=== PATIENT | female | born 1935 | race Caucasian/White ===

== ENCOUNTER 2022-09-18 13:17 | Inpatient (IN) ==
[2022-09-18] MEDS: fentaNYL 100 mcg/2 ml 50 MCG/ML VIAL IV SLOW PU PRN ×2 (13:54→15:11)
[2022-09-18] MEDS ORDERED: Morphine 4 MG/ML VIAL (1 ml) IV ONE (16:32)
[2022-09-18 16:41] LABS: ABS Lymphocytes 1.8 10^3/ul (1.0-4.8); ABS Monocytes 0.7 10^3/ul (0-0.8); ABS Neutrophils 11.9 10^3/ul (1.5-7.7); Eosinophil % 0.1 %; Hematocrit 27 % (35-47); Hemoglobin 8.9 g/dL (12.0-16.0); Lymphocyte % 12.6 %; Mean Corpuscular HGB Conc 33 g/dL (31-36); Mean Corpuscular Hemoglobin 28 pg (27-31); Mean Corpuscular Volume 86 fL (80-97); Mean Platelet Volume 7.8 fL (7.4-10.4); Platelet Count 223 10^3/uL (150-450); Red Blood Count 3.17 10^6 /uL (3.70-4.87); Red Cell Distribution Width 14 % (10-15); White Blood Count 14.5 10^3/uL (3.5-10.8)
[2022-09-18 16:49] LABS: INR 1.01 (0.89-1.11)
[2022-09-18 17:05] LABS: Albumin 3.8 g/dL (3.2-5.2); Albumin/Globulin Ratio 1.8 (1-3); Globulin 2.1 g/dL (2-4); Potassium 4.3 mmol/L (3.5-5.0); Total Bilirubin 0.3 mg/dL (0.2-1.0); Total Protein 5.9 g/dL (6.4-8.9); eGFR CKD-EPI 70.7 (>60)
[2022-09-18] MEDS ORDERED: HYDROmorphone 0.5 MG/0.5 ML SYRINGE IV SLOW PU PRN (18:03)
[2022-09-18] MEDS ORDERED: Heparin 5000 UNITS/ML 1 mL VIAL SUBCUT ONE (18:10)
[2022-09-18] MEDS ORDERED: Dextrose 50% Syringe 50 ml 25 GM/50 ML SYRINGE IV PUSH PRN (18:14)
[2022-09-18 18:35] LABS: Corrected Retic Count 0.8 % (0.5-1.5); Hematocrit for Retic CNT 27 % (35-47); Immature Retic Fraction 0.42; RBC Retic Count 3.12 10^6/uL (3.70-4.87)
[2022-09-18 19:07] LABS: Ferritin 11.3 ng/mL (11-307)
[2022-09-18] MEDS: HYDROmorphone 1 MG/1 ML SYRINGE IV SLOW PU PRN ×2 (19:13→23:23)
[2022-09-18] MEDS: Acetaminophen IV 1 GM/100ML 1,000 MG/100 ML BAG IV PRN (20:57)
[2022-09-19] MEDS ORDERED: HYDROmorphone 1 MG/1 ML SYRINGE IV ONE (01:17)
[2022-09-19] MEDS: Acetaminophen IV 1 GM/100ML 1,000 MG/100 ML BAG IV PRN ×3 (02:58→15:39)
[2022-09-19] MEDS: HYDROmorphone 1 MG/1 ML SYRINGE IV SLOW PU PRN ×2 (04:59→08:50)
[2022-09-19] MEDS ORDERED: Lactated Ringers 1000 ml BAG 1,000 ML IV SCH ×2 (06:00→12:00)
[2022-09-19 06:11] LABS: Hematocrit 23 % (35-47); Hemoglobin 7.7 g/dL (12.0-16.0); Mean Corpuscular HGB Conc 33 g/dL (31-36); Mean Corpuscular Hemoglobin 29 pg (27-31); Mean Corpuscular Volume 86 fL (80-97); Mean Platelet Volume 8.3 fL (7.4-10.4); Platelet Count 193 10^3/uL (150-450); Red Cell Distribution Width 14 % (10-15); White Blood Count 8.8 10^3/uL (3.5-10.8)
[2022-09-19 06:28] LABS: Calcium 8.5 mg/dL (8.6-10.3); Potassium 4.1 mmol/L (3.5-5.0); eGFR CKD-EPI 46.9 (>60)
[2022-09-19] MEDS: Lactated Ringers 1000 ml BAG 1,000 ML IV SCH ×2 (08:42→23:36)
[2022-09-19] MEDS: Ondansetron 4 mg VIAL 2 MG/ML 2 ml VIAL IV PRN (09:00)
[2022-09-19] MEDS ORDERED: Buffered Lidocaine 1% SYRIN 1 ml INTRADERM ONE (11:49)
[2022-09-19 12:46] LABS: Urine Appearance Clear; Urine Bilirubin Negative (Negative); Urine Blood Negative (Negative); Urine Color Yellow; Urine Glucose Negative (Negative); Urine Ketones Negative (Negative); Urine Nitrite Negative (Negative); Urine Protein Negative (Negative); Urine Specific Gravity 1.023 (1.002-1.030); Urine Urobilinogen Negative (Negative)
[2022-09-19] MEDS ORDERED: Propofol 10 MG/ML 20 ML BTL ONE (12:51)
[2022-09-19] MEDS ORDERED: Lidocaine 2% PF 5 ML VIAL ONE (12:51)
[2022-09-19] MEDS ORDERED: fentaNYL 100 mcg/2 ml 50 MCG/ML VIAL ONE ×2 (12:52→14:45)
[2022-09-19] MEDS ORDERED: ceFAZolin 2 GM in NS PREMIX 2 GM/100 ML BAG IVPB ONE (13:10)
[2022-09-19] MEDS ORDERED: Naloxone 0.4 mg VIAL 0.4 mg/ml 1 ml VIAL IV PRN (13:26)
[2022-09-19] MEDS ORDERED: Ondansetron 4 mg VIAL 2 MG/ML 2 ml VIAL IV PRN (13:26)
[2022-09-19] MEDS ORDERED: Phenylephrine 40 mcg/mL 10mL (400mcg) SYRINGE ONE ×2 (14:15→14:26)
[2022-09-19] MEDS ORDERED: Ondansetron 4 mg VIAL 2 MG/ML 2 ml VIAL ONE (14:26)
[2022-09-19] MEDS ORDERED: Dexamethasone IV 4 MG/ML VIAL 1 ml VIAL ONE (14:26)
[2022-09-19] MEDS: fentaNYL 100 mcg/2 ml 50 MCG/ML VIAL IV PRN ×3 (14:47→15:15)
[2022-09-19] MEDS ORDERED: HYDROmorphone 1 MG/1 ML SYRINGE ONE (15:35)
[2022-09-19] MEDS ORDERED: Acetaminophen IV 1 GM/100ML 1,000 MG/100 ML BAG IV ONE (15:35)
[2022-09-19] MEDS: HYDROmorphone 0.5 MG/0.5 ML SYRINGE IV SLOW PU PRN ×2 (15:44→20:58)
[2022-09-19 17:03] LABS: Hematocrit 25 % (35-47); Hemoglobin 8.2 g/dL (12.0-16.0)
[2022-09-19] MEDS: ceFAZolin 1 GM X 3 DOSES POST-OP Q8H (AddVan) IVPB SCH (20:59)
[2022-09-20] MEDS: Acetaminophen IV 1 GM/100ML 1,000 MG/100 ML BAG IV PRN ×2 (00:38→07:44)
[2022-09-20] MEDS: HYDROmorphone 1 MG/1 ML SYRINGE IV SLOW PU PRN (02:06)
[2022-09-20] MEDS: ceFAZolin 1 GM X 3 DOSES POST-OP Q8H (AddVan) IVPB SCH ×2 (05:13→13:36)
[2022-09-20 05:14] LABS: ABS Lymphocytes 2.7 10^3/ul (1.0-4.8); ABS Monocytes 1.1 10^3/ul (0-0.8); ABS Neutrophils 9.3 10^3/ul (1.5-7.7); Hematocrit 22 % (35-47); Hemoglobin 7.4 g/dL (12.0-16.0); Lymphocyte % 20.4 %; Mean Corpuscular HGB Conc 34 g/dL (31-36); Mean Corpuscular Hemoglobin 29 pg (27-31); Mean Corpuscular Volume 86 fL (80-97); Mean Platelet Volume 8.6 fL (7.4-10.4); Platelet Count 167 10^3/uL (150-450); Red Blood Count 2.51 10^6 /uL (3.70-4.87); Red Cell Distribution Width 14 % (10-15)
[2022-09-20 05:29] LABS: Calcium 8.1 mg/dL (8.6-10.3); Potassium 4.3 mmol/L (3.5-5.0); eGFR CKD-EPI 56.2 (>60)
[2022-09-20] MEDS: HYDROmorphone 0.5 MG/0.5 ML SYRINGE IV SLOW PU PRN (06:15)
[2022-09-20] MEDS: Lactated Ringers 1000 ml BAG 1,000 ML IV SCH (07:49)
[2022-09-20] MEDS: Enoxaparin 30 MG/0.3 ML SYR SUBCUT SCH (09:55)
[2022-09-20] MEDS: Morphine 2 MG/ML SYRINGE IV PRN (11:33)
[2022-09-20] MEDS ORDERED: HYDROcodone/ACETAMIN 5/325 mg TAB PO PRN (13:29)
[2022-09-20] MEDS: HYDROcodone/ACETAMIN 5/325 mg TAB PO PRN ×2 (13:36→17:55)
[2022-09-21] MEDS: HYDROcodone/ACETAMIN 5/325 mg TAB PO PRN ×5 (03:57→20:58)
[2022-09-21 06:32] LABS: ABS Eosinophils 0.1 10^3/ul (0-0.6); ABS Neutrophils 6.7 10^3/ul (1.5-7.7); Eosinophil % 0.5 %; Hematocrit 18 % (35-47); Lymphocyte % 20.3 %; Mean Corpuscular HGB Conc 33 g/dL (31-36); Mean Corpuscular Hemoglobin 29 pg (27-31); Mean Corpuscular Volume 87 fL (80-97); Mean Platelet Volume 8.5 fL (7.4-10.4); Platelet Count 152 10^3/uL (150-450); Red Blood Count 2.05 10^6 /uL (3.70-4.87); Red Cell Distribution Width 15 % (10-15); White Blood Count 9.7 10^3/uL (3.5-10.8)
[2022-09-21 06:44] LABS: Calcium 7.8 mg/dL (8.6-10.3); Potassium 4.2 mmol/L (3.5-5.0); eGFR CKD-EPI 63.1 (>60)
[2022-09-21] MEDS: Enoxaparin 30 MG/0.3 ML SYR SUBCUT SCH (08:46)
[2022-09-21 17:01] LABS: Hematocrit 24 % (35-47); Hemoglobin 7.9 g/dL (12.0-16.0)
[2022-09-21] MEDS: Insulin GLARGINE 100 un/ml 10 ml VIAL SUBCUT SCH (21:07)
[2022-09-22] MEDS: HYDROcodone/ACETAMIN 5/325 mg TAB PO PRN ×5 (01:17→22:32)
[2022-09-22 06:18] LABS: ABS Eosinophils 0.1 10^3/ul (0-0.6); ABS Lymphocytes 2.7 10^3/ul (1.0-4.8); ABS Neutrophils 6.6 10^3/ul (1.5-7.7); Eosinophil % 0.6 %; Hematocrit 22 % (35-47); Hemoglobin 7.5 g/dL (12.0-16.0); Lymphocyte % 25.9 %; Mean Corpuscular HGB Conc 34 g/dL (31-36); Mean Corpuscular Hemoglobin 30 pg (27-31); Mean Corpuscular Volume 87 fL (80-97); Mean Platelet Volume 8.3 fL (7.4-10.4); Platelet Count 179 10^3/uL (150-450); Red Blood Count 2.53 10^6 /uL (3.70-4.87); Red Cell Distribution Width 15 % (10-15); White Blood Count 10.4 10^3/uL (3.5-10.8)
[2022-09-22 06:38] LABS: Calcium 7.9 mg/dL (8.6-10.3); eGFR CKD-EPI 67.6 (>60)
[2022-09-22] MEDS: Insulin GLARGINE 100 un/ml 10 ml VIAL SUBCUT SCH ×2 (09:16→22:34)
[2022-09-22] MEDS: Enoxaparin 30 MG/0.3 ML SYR SUBCUT SCH (09:18)
[2022-09-22] MEDS: Magnesium Hydroxide LIQ 30 ML UDC PO PRN (10:38)
[2022-09-22] MEDS: Senna TAB 8.6 mg TAB PO PRN (10:38)
[2022-09-23] MEDS: HYDROcodone/ACETAMIN 5/325 mg TAB PO PRN ×5 (03:24→23:13)
[2022-09-23] MEDS: Insulin GLARGINE 100 un/ml 10 ml VIAL SUBCUT SCH ×2 (08:42→22:04)
[2022-09-23] MEDS: Enoxaparin 30 MG/0.3 ML SYR SUBCUT SCH (08:43)
[2022-09-23 09:05] LABS: ABS Eosinophils 0.1 10^3/ul (0-0.6); ABS Lymphocytes 2.3 10^3/ul (1.0-4.8); ABS Monocytes 0.8 10^3/ul (0-0.8); ABS Neutrophils 5.4 10^3/ul (1.5-7.7); Eosinophil % 1.3 %; Hematocrit 21 % (35-47); Hemoglobin 6.9 g/dL (12.0-16.0); Lymphocyte % 27.2 %; Mean Corpuscular HGB Conc 33 g/dL (31-36); Mean Corpuscular Hemoglobin 29 pg (27-31); Mean Corpuscular Volume 87 fL (80-97); Mean Platelet Volume 7.8 fL (7.4-10.4); Platelet Count 210 10^3/uL (150-450); Red Blood Count 2.37 10^6 /uL (3.70-4.87); Red Cell Distribution Width 15 % (10-15); White Blood Count 8.6 10^3/uL (3.5-10.8)
[2022-09-23 10:05] LABS: Calcium 7.8 mg/dL (8.6-10.3); Potassium 3.9 mmol/L (3.5-5.0); eGFR CKD-EPI 67.6 (>60)
[2022-09-24] MEDS: HYDROcodone/ACETAMIN 5/325 mg TAB PO PRN ×3 (04:46→20:43)
[2022-09-24 06:44] LABS: ABS Eosinophils 0.1 10^3/ul (0-0.6); ABS Lymphocytes 2.8 10^3/ul (1.0-4.8); ABS Monocytes 0.8 10^3/ul (0-0.8); Eosinophil % 1.1 %; Hematocrit 25 % (35-47); Hemoglobin 8.5 g/dL (12.0-16.0); Lymphocyte % 31.9 %; Mean Corpuscular HGB Conc 34 g/dL (31-36); Mean Corpuscular Hemoglobin 29 pg (27-31); Mean Corpuscular Volume 86 fL (80-97); Mean Platelet Volume 7.9 fL (7.4-10.4); Nucleated Red Blood Cells % 0.1; Platelet Count 236 10^3/uL (150-450); Red Blood Count 2.93 10^6 /uL (3.70-4.87); Red Cell Distribution Width 15 % (10-15); White Blood Count 8.7 10^3/uL (3.5-10.8)
[2022-09-24 06:58] LABS: Calcium 7.8 mg/dL (8.6-10.3); Magnesium 1.9 mg/dL (1.9-2.7); Potassium 4.1 mmol/L (3.5-5.0); eGFR CKD-EPI 65.8 (>60)
[2022-09-24] MEDS: Magnesium Hydroxide LIQ 30 ML UDC PO PRN (09:27)
[2022-09-24] MEDS: Insulin GLARGINE 100 un/ml 10 ml VIAL SUBCUT SCH ×2 (09:28→20:44)
[2022-09-24] MEDS: Enoxaparin 30 MG/0.3 ML SYR SUBCUT SCH (09:29)
[2022-09-24] MEDS: Morphine 2 MG/ML SYRINGE IV PRN (22:58)
[2022-09-25] MEDS: HYDROcodone/ACETAMIN 5/325 mg TAB PO PRN ×4 (05:46→20:27)
[2022-09-25 05:50] LABS: Hematocrit 25 % (35-47); Hemoglobin 8.5 g/dL (12.0-16.0); Mean Corpuscular HGB Conc 34 g/dL (31-36); Mean Corpuscular Hemoglobin 29 pg (27-31); Mean Corpuscular Volume 86 fL (80-97); Mean Platelet Volume 7.7 fL (7.4-10.4); Platelet Count 275 10^3/uL (150-450); Red Cell Distribution Width 15 % (10-15); White Blood Count 9.5 10^3/uL (3.5-10.8)
[2022-09-25 06:10] LABS: Calcium 8.2 mg/dL (8.6-10.3); Potassium 4.5 mmol/L (3.5-5.0); eGFR CKD-EPI 72.8 (>60)
[2022-09-25] MEDS: Enoxaparin 30 MG/0.3 ML SYR SUBCUT SCH (10:05)
[2022-09-25] MEDS: Insulin GLARGINE 100 un/ml 10 ml VIAL SUBCUT SCH ×2 (10:05→20:28)
[2022-09-25] MEDS: Senna TAB 8.6 mg TAB PO PRN (20:27)
[2022-09-26] MEDS: HYDROcodone/ACETAMIN 5/325 mg TAB PO PRN ×6 (00:25→22:53)
[2022-09-26] MEDS: Enoxaparin 30 MG/0.3 ML SYR SUBCUT SCH (10:07)
[2022-09-26] MEDS: Insulin GLARGINE 100 un/ml 10 ml VIAL SUBCUT SCH ×2 (10:09→20:26)
[2022-09-26] MEDS: Senna TAB 8.6 mg TAB PO PRN (20:34)
[2022-09-26] MEDS: Magnesium Hydroxide LIQ 30 ML UDC PO PRN (20:34)
[2022-09-27] MEDS: HYDROcodone/ACETAMIN 5/325 mg TAB PO PRN ×5 (03:37→20:44)
[2022-09-27 08:45] LABS: ABS Eosinophils 0.1 10^3/ul (0-0.6); ABS Monocytes 0.9 10^3/ul (0-0.8); ABS Neutrophils 5.3 10^3/ul (1.5-7.7); Eosinophil % 1.1 %; Hematocrit 27 % (35-47); Hemoglobin 8.7 g/dL (12.0-16.0); Lymphocyte % 31.9 %; Mean Corpuscular HGB Conc 33 g/dL (31-36); Mean Corpuscular Hemoglobin 29 pg (27-31); Mean Corpuscular Volume 88 fL (80-97); Mean Platelet Volume 7.5 fL (7.4-10.4); Platelet Count 382 10^3/uL (150-450); Red Blood Count 3.05 10^6 /uL (3.70-4.87); Red Cell Distribution Width 15 % (10-15); White Blood Count 9.4 10^3/uL (3.5-10.8)
[2022-09-27] MEDS: Insulin GLARGINE 100 un/ml 10 ml VIAL SUBCUT SCH ×2 (08:52→20:45)
[2022-09-27] MEDS: Enoxaparin 30 MG/0.3 ML SYR SUBCUT SCH (08:53)
[2022-09-27 09:00] LABS: Calcium 8.9 mg/dL (8.6-10.3); Potassium 4.6 mmol/L (3.5-5.0); eGFR CKD-EPI 63.1 (>60)
[2022-09-27] MEDS: Senna TAB 8.6 mg TAB PO PRN (12:30)
[2022-09-27] MEDS: Magnesium Hydroxide LIQ 30 ML UDC PO PRN (12:30)
[2022-09-28] MEDS: HYDROcodone/ACETAMIN 5/325 mg TAB PO PRN ×5 (02:50→21:56)
[2022-09-28] MEDS: Enoxaparin 30 MG/0.3 ML SYR SUBCUT SCH (08:42)
[2022-09-28] MEDS: Insulin GLARGINE 100 un/ml 10 ml VIAL SUBCUT SCH ×2 (08:43→21:57)
[2022-09-29] MEDS: HYDROcodone/ACETAMIN 5/325 mg TAB PO PRN ×5 (02:04→21:13)
[2022-09-29] MEDS: Enoxaparin 30 MG/0.3 ML SYR SUBCUT SCH (08:50)
[2022-09-29] MEDS: Insulin GLARGINE 100 un/ml 10 ml VIAL SUBCUT SCH ×2 (08:53→21:15)
[2022-09-30] MEDS: HYDROcodone/ACETAMIN 5/325 mg TAB PO PRN ×4 (03:37→19:41)
[2022-09-30] MEDS: Enoxaparin 30 MG/0.3 ML SYR SUBCUT SCH (08:32)
[2022-09-30] MEDS: Insulin GLARGINE 100 un/ml 10 ml VIAL SUBCUT SCH ×2 (08:36→20:28)
[2022-10-01] MEDS: HYDROcodone/ACETAMIN 5/325 mg TAB PO PRN ×5 (03:30→20:06)
[2022-10-01 07:54] LABS: ABS Basophils 0.1 10^3/ul (0-0.2); ABS Eosinophils 0.1 10^3/ul (0-0.6); ABS Lymphocytes 3.1 10^3/ul (1.0-4.8); ABS Monocytes 0.6 10^3/ul (0-0.8); ABS Neutrophils 6.6 10^3/ul (1.5-7.7); Eosinophil % 1.1 %; Hematocrit 27 % (35-47); Hemoglobin 8.6 g/dL (12.0-16.0); Lymphocyte % 29.3 %; Mean Corpuscular HGB Conc 32 g/dL (31-36); Mean Corpuscular Hemoglobin 29 pg (27-31); Mean Corpuscular Volume 89 fL (80-97); Mean Platelet Volume 7.1 fL (7.4-10.4); Platelet Count 456 10^3/uL (150-450); Red Blood Count 2.99 10^6 /uL (3.70-4.87); Red Cell Distribution Width 16 % (10-15); White Blood Count 10.5 10^3/uL (3.5-10.8)
[2022-10-01] MEDS: Enoxaparin 30 MG/0.3 ML SYR SUBCUT SCH (08:15)
[2022-10-01] MEDS: Insulin GLARGINE 100 un/ml 10 ml VIAL SUBCUT SCH ×2 (08:16→20:28)
[2022-10-01 08:34] LABS: Potassium 4.7 mmol/L (3.5-5.0); eGFR CKD-EPI 72.8 (>60)
[2022-10-02] MEDS: HYDROcodone/ACETAMIN 5/325 mg TAB PO PRN ×5 (01:48→21:17)
[2022-10-02] MEDS: Insulin GLARGINE 100 un/ml 10 ml VIAL SUBCUT SCH ×2 (09:04→21:19)
[2022-10-02] MEDS: Enoxaparin 30 MG/0.3 ML SYR SUBCUT SCH (09:04)
[2022-10-02 18:24] LABS: Urine Appearance Clear; Urine Bilirubin Negative (Negative); Urine Blood Negative (Negative); Urine Color Yellow; Urine Glucose Negative (Negative); Urine Ketones Negative (Negative); Urine Nitrite Negative (Negative); Urine Protein Negative (Negative); Urine Specific Gravity 1.016 (1.002-1.030); Urine Urobilinogen Positive (Negative)
[2022-10-02 18:50] LABS: Urine Bacteria Absent (Absent); Urine Red Blood Cell Absent (Absent); Urine Squamous Epithelial Cell Present (Absent); Urine White Blood Cell Trace(0-5/hpf) (Absent)
[2022-10-03] MEDS: HYDROcodone/ACETAMIN 5/325 mg TAB PO PRN ×3 (01:37→12:53)
[2022-10-03] MEDS: Enoxaparin 30 MG/0.3 ML SYR SUBCUT SCH (09:23)
[2022-10-03] MEDS: Insulin GLARGINE 100 un/ml 10 ml VIAL SUBCUT SCH (09:24)
[2022-10-03] MEDS: Ondansetron 4 mg VIAL 2 MG/ML 2 ml VIAL IV PRN (10:46)
[2022-10-03 11:22] VITALS: BP 137/68
[2022-10-03 13:21] LABS: Rapid COVID-19 Molecular Undetected (Undetected)
== END 2022-10-03 13:26 | disposition swing bed (61) | DRG 481 ==
LOC: EDHOLD 13:17 → ED 13:17 → EDHOLD 20:11 → SSU 20:20 → SUATTDRO 09-19 11:09
PROVIDERS: ADMIT Internal Medicine; ATTEND Hospitalist